=== PATIENT | male | born 1990 | race Caucasian/White ===

== ENCOUNTER 2022-07-10 14:30 | Emergency (ER) | payer SELFPAY ==
[2022-07-10 14:33] VITALS: BP 149/88; PULSE 81; RESP 18; TEMP 35.9; O2SAT 96; BMI 33.5
--- NOTE | 2022-07-10 14:44 | ED.NURSE ---
patient is soaking the left thumb in chlorhexidine and water.
--- NOTE | 2022-07-10 15:00 | ED.GENADULT ---
HPI - General Adult General Date Seen: 07/10/22 Chief complaint: Extremity Pain/Injury, Upper Stated complaint: Left thumb injury Time Seen by Provider: 07/10/22 14:43 Source: patient History of Present Illness HPI narrative: Patient is a 32-year-old male who presents with a laceration on his left thumb pad. He sustained this with a pocket knife. No complaints of numbness or loss of function. Believes his tetanus is up-to-date. Related Data Home Medications Medication Instructions Recorded Confirmed meloxicam PO DAILY 07/10/22 tramadol PO DAILY 07/10/22 Allergies Allergy/AdvReac Type Severity Reaction Status Date / Time No Known Drug Allergies Allergy Verified 07/10/22 14:37 PFSH PFS Social History Smoking Status: Never smoker Do you use any of these nicotine containing products: None How often do you have a drink containing alcohol: never AUDIT-C Alcohol total score: 0 Non-prescribed substance use: denies use service: No Exam Narrative: Exam Narrative: Vital signs reviewed In general, an alert, well-appearing male. Extremities: Examination of the left hand shows a 2 cm curved laceration over the thumb pad. Being is controlled. Sensation is intact to light touch. Remainder of the hand is atraumatic. Skin: Otherwise well perfused, intact. Neurologic: Alert, conversant, gait stable. Const: Vital Signs, click to edit/add: Vital Signs - 24 hr 07/10/22 14:33 Temperature 96.7 F L Pulse Rate [Right Pulse Oximeter] 81 Respiratory Rate 18 Blood Pressure [Ri ght Upper Arm] 149/88 H Pulse Oximetry 96 Oxygen Delivery Me thod Room Air Documenting provider has reviewed patient's vital signs: yes Course Course Hospital Course: Procedure note: A digital block was performed using lidocaine with epinephrine. He had good anesthesia. The wound was clean and explored without evidence of injury to deeper structures or foreign body. It was closed using a total of 7 superficial simple interrupted sutures with 5 0 nylon. Tolerated this well without immediate complication. A dressing is applied by the technical publications writer including bacitracin, Telfa and tube gauze. Suture removal in 7-10 days. Return for signs of infection. Vital Signs Vital signs: Initial Vital Signs Temperature 96.7 F L 07/10/22 14:33 Temperature Source Temporal Artery Scan 07/10/22 14:33 Pulse Rate 81 07/10/22 14:33 Respiratory Rate 18 07/10/22 14:33 Blood Pressure 149/88 H 07/10/22 14:33 Blood Pressure Mean 108 07/10/22 14:33 Blood Pressure Position Sitting 07/10/22 14:33 Pulse Oximetry 96 07/10/22 14:33 Oxygen Delivery Method 07/10/22 14:33 Vital Signs Temperature 96.7 F L 07/10/22 14:33 Pulse Rate 81 07/10/22 14:33 Respiratory Rate 18 07/10/22 14:33 Blood Pressure 149/88 H 07/10/22 14:33 Pulse Oximetry 96 07/10/22 14:33 Oxygen Delivery Method 07/10/22 14:33 Temperature 96.7 F L 07/10/22 14:33 Pulse Rate 81 07/10/22 14:33 Respiratory Rate 18 07/10/22 14:33 Blood Pressure 149/88 H 07/10/22 14:33 Pulse Oximetry 96 07/10/22 14:33 Oxygen Delivery Method 07/10/22 14:33 Discharge Plan Discharge Clinical Impression: Laceration of thumb Patient Disposition: Home, Self-Care Condition: Improved Instructions: Finger Laceration (ED) Additional Instructions: Suture removal in 7-10 days. Return for signs of infection. Prescriptions: No Action meloxicam PO DAILY tramadol PO DAILY Stand Alone Forms: MyHealth Info Instructions
== END 2022-07-10 16:03 | disposition home or self-care (01) ==
LOC: ED 16:02
PROVIDERS: Emergency Provider Emergency Medicine
DX: S61.012A Laceration without foreign body of left thumb without damage to nail, initial encounter (principal); W26.0XXA Contact with knife, initial encounter
CPT/HCPCS: 12001; 99283